=== PATIENT | female | born 1985 | race Two or more races ===

== ENCOUNTER 2022-07-22 19:22 | Emergency (ER) | payer OTHER ==
[~2022-07-22] VITALS: Ht 157.5 cm; Wt 66.0 kg
[2022-07-23] MEDS ORDERED: ONDANSETRON ODT 4 MG TAB PO ONE
[2022-07-23] MEDS ORDERED: HYDROcodone-ACET 5/325MG TAB PO ONE
[2022-07-23 00:25] VITALS: BP 126/83
== END 2022-07-23 00:30 | disposition home or self-care (01) ==
LOC: EDBD 19:22 → ER 19:25
DX: R07.89 Other chest pain (principal); G89.11 Acute pain due to trauma; V49.49XA Driver injured in collision with other motor vehicles in traffic accident, initial encounter; Y93.89 Activity, other specified; Y92.410 Unspecified street and highway as the place of occurrence of the external cause; Y99.8 Other external cause status
CPT/HCPCS: 70450; 71045; 71250; 72125; 74176; 93005; 99284; Q0162